=== PATIENT | female | born 1970 | race Caucasian/White ===

== ENCOUNTER 2016-12-09 15:39 | Inpatient (IN) | payer MEDICAID ==
[~2016-12-09] VITALS: Ht 160 cm; Wt 48.0 kg
--- NOTE | ~2016-12-09 | HP ---
ADMIT: 12/09/2016 RM/LOC: 310 [facility] MR#: [id number] 2620 [facility] [address] [place] [id number] [place]ASH [place] [address] History and Physical SEX: F AGE: 46 : 1970 DATE OF SERVICE: CHIEF COMPLAINT: Shortness of breath and anxiety. HISTORY OF PRESENT ILLNESS: This is a 46-year-old female, who was transferred to the Emergency Department down from [place] for management of the chest tube. Apparently, she came in anxious, short of breath, was found to have spontaneous pneumothorax, a chest tube was placed and then transferred down here. By the time she arrived here, she was very anxious, tachycardic, pulse was in the 190s, she was in severe distress and really could not communicate. She was having pain in the side of her chest tube. The only history we could really obtain was that she had Graves disease at some point, but had not been taking her medications. I then saw her later, she was quite somnolent and not a good historian at that time either. She was given some Ativan. She was also given some IV Lopressor and her sinus tach has now come down to the 130s range. Again, she does not give me much history. PAST MEDICAL HISTORY: Her past history includes hyperthyroidism. Looks like she has underlying COPD. Other past history includes a left pneumothorax. FAMILY HISTORY: Attempted to be reviewed, but unable. SOCIAL HISTORY: There is mention that she had been a smoker. MEDICATIONS: Denied taking any medications. REVIEW OF SYSTEMS: Other complete review of systems really not helpful other than she complains of right chest pain and some shortness of breath sensation. PHYSICAL EXAMINATION: VITAL SIGNS: Blood pressure 97/51, pulse 136, oxygen saturation 97% on 4 L oxygen by nasal cannula. GENERAL: This is a very anxious and thin appearing 46-year-old female. She appears older than her stated age. HEENT: Pupils are equal, round, and reactive to light and accommodation. Extraocular muscles are intact. Her throat is clear. NECK: Supple. Trachea midline. I could not feel her thyroid; however, she was sitting propped up in bed, not willing to move and straighten out for me. HEART: Regular rate and rhythm, but tachycardic. LUNGS: Diminished breath sounds bilaterally. ABDOMEN: Soft, nontender. She has chest tube in the right side of her chest. EXTREMITIES: Lower extremities have 1+ edema throughout. She can move all extremities equally bilaterally. NEUROLOGICAL: She is confused, not alert, and not oriented. ASSESSMENT: 1. Shortness of breath. 2. Pneumothorax. 3. Tachycardia. ADMIT: 12/09/2016 RM/LOC: 310 [facility] MR#: [id number] [address] [place] [id number] YASH NGUYEN [address] [facility] [id number] History and Physical SEX: F AGE: 46 : 1970 4. Likely thyroid storm. 5. Mental status changes. 6. History of Graves disease. 7. Elevated alkaline phosphatase. 8. Elevated lactic acid. 9. Elevated ALT. PLAN: She will be admitted to the hospital. We will have Surgery see her for a chest tube. She was given some PTU. We will continue her methimazole. Give her some IV hydrocortisone and give her IV fluid at this time. Check an ultrasound of her abdomen just to check on her. Get few of her pain under control and keep her anxiety under control as well, which may be difficult. Alexis Martinez MD/ natty JOB #: [id number] CC: Alexis Martinez MD, Attending Physician Alexis Martinez MD, Family Physician
--- NOTE | 2016-12-14 08:46 | ER ---
ADMIT: 12/09/2016 RM/LOC: 316 [facility] MR#: [id number] [address] [id number] YASH NGUYEN [address] [place] [address] Emergency Room Report SEX: F AGE: 46 : 1970 DATE: 12/09/2016 HISTORY OF PRESENT ILLNESS: A 46-year-old female who was transferred to the Emergency Department from [place] for management of chest tube. However, by the time the patient had arrived, she was exceedingly anxious, tachycardic with a pulse in the 190s, in severe distress, was unable to communicate, complaining of pain and agitation, unable to provide any history, though I did get that she had Graves and had not been taking her medication. It is all the history that I could obtain. PHYSICAL EXAMINATION: GENERAL: Was a 46-year-old female in severe distress, agitated, anxious, with profound tachycardia and tachypnea. There is a chest tube in place. LUNGS: She had bilateral breath sounds. ABDOMEN: Soft, with hyperactive bowel tones. EXTREMITIES: Without clubbing, cyanosis, or edema. EMERGENCY ROOM COURSE: A stat x-ray was obtained and ABG was obtained. Sepsis workup was initiated as well as a TSH and a free T4. The results of the TSH came back at 0.005. Free T4 was greater than 6. The patient was admitted with a diagnosis of: 1. Pneumothorax with a chest tube in place and expansion of the lungs. 2. Thyroid storm. She was given metoprolol in the Emergency Department which brought her heart rate from 190s down to the 130s, given vigorous fluid hydration, Dilaudid for pain and Ativan. When the results of the TSH returned, she was given propylthiouracil. Demetrius Mccarthy MD/ natty JOB #: [id number] CC: Alexis Martinez MD, Attending Physician Alexis Martinez MD, Family Physician
--- NOTE | 2016-12-17 06:50 | DS ---
ADMIT: 12/09/2016 RM/LOC: 310 [facility] MR#: [id number] [address] [facility] [address] [place], [place] [id number] YASH NGUYEN [address] [place] [address] General Discharge Summary SEX: F AGE: 46 : 1970 ADMISSION DATE: 12/09/2016 DISCHARGE DATE: 12/11/2016 FINAL DIAGNOSES: 1. Pneumothorax. 2. Shortness of breath. 3. Hyperthyroidism with thyroid storm. 4. Mental status changes. 5. Elevated lactic acid. 6. Anxiety. 7. Hypotension. 8. Tachycardia. REASON FOR ADMISSION: This is a 46-year-old female, who presented from outside facility after having a pneumothorax. When she arrived to our facility, she had tachycardia. HOSPITAL COURSE: She was admitted, tachycardia was controlled and then she was found she had hyperthyroidism. She was put on higher doses of methimazole. Her free T4 was checked and found to be quite elevated. She had a lot of hallucinations and agitation, cussing and trying to leave. They had given some Ativan and hydrocodone and it was unsuccessful as well as Dilaudid and that was unsuccessful. She gave her some Seroquel and this did calm her down quite a bit. She was having a lot of hallucinations as well. We did order alpha-1 antitrypsin electrophoresis. Because of early age and severe emphysema with her hyperthyroidism with associated mental status changes and tachycardia, it was felt this could be thyroid storm, because of that. We do not have Endocrinology. She has also been requiring 6 L of oxygen and a little bit on the hypotensive side. We also did not have Critical Care at the time, so felt best to have her manage in other facility. We had to transfer her to [facility] in [place] and they accepted her, so we arranged transfer. 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 Alexis Martinez MD/ natty JOB #: [id number] CC: Alexis Martinez MD, Attending Physician Alexis Martinez MD, Family Physician
== END 2016-12-11 11:57 | disposition short-term general hospital (02) | DRG 644 ==
LOC: ER 15:39 → 3ICU 17:08
PROVIDERS: ADMIT Internal Medicine
DX: E05.01 Thyrotoxicosis with diffuse goiter with thyrotoxic crisis or storm (principal); E87.2 Acidosis; I95.9 Hypotension, unspecified; J93.83 Other pneumothorax; R44.3 Hallucinations, unspecified; R06.82 Tachypnea, not elsewhere classified; R00.0 Tachycardia, unspecified; F41.9 Anxiety disorder, unspecified; J44.9 Chronic obstructive pulmonary disease, unspecified; F17.200 Nicotine dependence, unspecified, uncomplicated